=== PATIENT | male | born 1985 | race African-American/Black ===

== ENCOUNTER 2023-03-21 08:11 | Outpatient (CLI) | payer OTHER, SELFPAY | END 2023-03-21 08:12 | disposition home or self-care (01) | PROVIDERS: PCP Family Medicine; Visit Provider Family Medicine | DX: Z13.220 Encounter for screening for lipoid disorders (principal); Z13.1 Encounter for screening for diabetes mellitus | CPT/HCPCS: 80061; 82947 ==

== ENCOUNTER 2024-04-03 13:07 | Outpatient (CLI) | payer OTHER, SELFPAY | END 2024-04-03 13:08 | disposition home or self-care (01) | PROVIDERS: PCP Family Medicine; Visit Provider Registered Nurse | DX: Z13.1 Encounter for screening for diabetes mellitus (principal); Z13.6 Encounter for screening for cardiovascular disorders | CPT/HCPCS: 80061; 82947 ==